=== PATIENT | female | born 1970 | race African-American/Black ===

== ENCOUNTER 2021-01-24 10:21 | Inpatient (IN) | payer BC, MEDICARE ==
[~2021-01-24 10:21] MED LIST: Iopamidol-370 76% 500 ML 1 ML ONE
[2021-01-24] MEDS ORDERED: Ondansetron PF 4 MG/2 ML Vial ONE (10:37)
[2021-01-24] MEDS ORDERED: Metoclopramide HCl 10 MG/2 ML VIAL ONE (10:39)
[2021-01-24] MEDS ORDERED: diphenhydrAMINE 50 MG/ML VIAL ONE (10:39)
[2021-01-24 10:55] LABS: #Eosinphils 0.1 thou/uL (0.0-0.7); #Lymphocytes 4.8 thou/uL (1.20-3.40); #Neutrophils 6.7 thou/uL (1.40-6.50); %Basophils 0.4 % (0.0-1.0); %Eosinophils 1.1 % (0.0-10.0); %Lymphocytes 37.8 % (21.0-51.0); %Monocytes 7.8 % (0.0-10.0); %Neutrophils 52.9 % (42.0-75.0); Hemoglobin 11.5 g/dL (12.0-16.0); Mean Corpuscular HGB CONC 31.9 g/dL (32.0-36.0); Mean Corpuscular Hemoglobin 26.8 pg (27.0-31.0); Mean Corpuscular Volume 84.1 fL (78.0-98.0); Platelet Count 301 thou/uL (130-400); RBC Distribution Width 13.5 % (11.5-14.5); Red Blood Cell (RBC) Count 4.28 mill/uL (4.20-5.40); White Blood Cell (WBC) Count 12.6 thou/uL (4.8-10.8)
[2021-01-24 11:02] LABS: INR-International Normal Ratio 1.1; Prothrombin Time 14.1 sec (12.0-14.7)
[2021-01-24 11:03] LABS: PTT 28.4 sec (22.9-36.1)
[2021-01-24 11:15] LABS: ALT (SGPT) 20 U/L (8-55); AST (SGOT) 14 U/L (5-34); Albumin 3.6 g/dL (3.5-5.0); Alkaline Phosphatase 117 U/L (40-110); Anion Gap 15 mmol/L (10-20); BUN (Urea Nitrogen) 14 mg/dL (7.0-18.7); Bilirubin, Total 0.3 mg/dL (0.2-1.2); Calc. Creatinine Clearance 0 mL/min (70-130); Calcium 8.7 mg/dL (7.8-10.44); Carbon Dioxide 23 mmol/L (22-29); Chloride 99 mmol/L (98-107); Globulin 3.5 g/dL (2.4-3.5); Glucose 145 mg/dL (70-105); Potassium 3.5 mmol/L (3.5-5.1); Protein, Total 7.1 g/dL (6.0-8.3); Sodium 133 mmol/L (136-145)
[2021-01-24] MEDS ORDERED: Acetaminophen 650 MG Suppository PR PRN (13:07)
[2021-01-24] MEDS ORDERED: Docusate 100 MG CAP PO PRN (13:07)
[2021-01-24] MEDS ORDERED: Labetalol HCl 100 MG/20 ML VIAL SLOW IVP PRN (13:07)
[2021-01-24] MEDS ORDERED: Communication Order-Pharmacy FS SCH (13:07)
[2021-01-24] MEDS ORDERED: hydrALAZINE 20 MG/ML VIAL SLOW IVP PRN (13:07)
[2021-01-24] MEDS ORDERED: Acetaminophen 325 MG TAB PO PRN (13:07)
[2021-01-24] MEDS ORDERED: niCARdipine 25 MG in Sodium Chloride 0.9% 250 ML 250 ML IVPB PRN (13:07)
[2021-01-24] MEDS ORDERED: Morphine 2 MG/ML VIAL SLOW IVP PRN (13:31)
[2021-01-24 13:41] LABS: SARS-CoV-2 NAA Rapid Test Not Detected (NotDetected)
[2021-01-24] MEDS ORDERED: Sodium Chloride 0.9% 1,000 ML IV SCH (14:00)
[2021-01-24 15:16] VITALS: BMI 38.7
[2021-01-24] MEDS: Atorvastatin Calcium 40 MG TAB PO SCH (20:09)
[2021-01-25] MEDS ORDERED: Lorazepam 2 MG/ML VIAL SLOW IVP PRN ×2 (10:01→10:15)
[2021-01-25 15:06] LABS: #Basophils 0.1 thou/uL (0.0-0.2); #Eosinphils 0.1 thou/uL (0.0-0.7); #Lymphocytes 2.9 thou/uL (1.20-3.40); #Monocytes 0.8 thou/uL (0.11-0.59); %Basophils 0.7 % (0.0-1.0); %Eosinophils 1.7 % (0.0-10.0); %Monocytes 9.5 % (0.0-10.0); %Neutrophils 51.1 % (42.0-75.0); Hemoglobin 11.6 g/dL (12.0-16.0); Mean Corpuscular HGB CONC 32.8 g/dL (32.0-36.0); Mean Corpuscular Hemoglobin 27.9 pg (27.0-31.0); Mean Corpuscular Volume 84.8 fL (78.0-98.0); Mean Platelet Volume 7.1 fL (7.4-10.4); Platelet Count 284 thou/uL (130-400); RBC Distribution Width 13.5 % (11.5-14.5); Red Blood Cell (RBC) Count 4.18 mill/uL (4.20-5.40); White Blood Cell (WBC) Count 7.9 thou/uL (4.8-10.8)
[2021-01-25 15:14] LABS: Hemoglobin A1c 6.3 % (4.0-6.0)
[2021-01-25 15:25] LABS: ALT (SGPT) 19 U/L (8-55); AST (SGOT) 19 U/L (5-34); Albumin 3.8 g/dL (3.5-5.0); Alkaline Phosphatase 124 U/L (40-110); Anion Gap 13 mmol/L (10-20); BUN (Urea Nitrogen) 12 mg/dL (7.0-18.7); Bilirubin, Total 0.5 mg/dL (0.2-1.2); Calc. Creatinine Clearance 123 mL/min (70-130); Calcium 8.6 mg/dL (7.8-10.44); Carbon Dioxide 26 mmol/L (22-29); Chloride 104 mmol/L (98-107); Globulin 3.4 g/dL (2.4-3.5); Glucose 103 mg/dL (70-105); Potassium 3.2 mmol/L (3.5-5.1); Protein, Total 7.2 g/dL (6.0-8.3); Sodium 140 mmol/L (136-145)
[2021-01-25] MEDS: Atorvastatin Calcium 40 MG TAB PO SCH (21:05)
[2021-01-26] MEDS ORDERED: Lorazepam 0.5 MG TAB PO PRN (10:02)
[2021-01-26 14:46] LABS: Cardiac Risk 3.7 (Less than 4.5)
[2021-01-26] MEDS ORDERED: Atorvastatin Calcium 40 MG TAB PO SCH (21:00)
[2021-01-26] MEDS ORDERED: Enoxaparin Sodium 40 MG/0.4 ML SYRINGE SC SCH (21:00)
[2021-01-26] MEDS: Atorvastatin Calcium 40 MG TAB PO SCH (21:03)
[2021-01-27] MEDS ORDERED: Levothyroxine Sodium 50 MCG TAB PO SCH (06:00)
[2021-01-27] MEDS ORDERED: Aspirin 81 mg Enteric Coated Tablet PO SCH (09:00)
[2021-01-27] MEDS ORDERED: Allopurinol 300 MG TAB PO SCH (09:00)
[2021-01-27] MEDS ORDERED: Hydrochlorothiazide 25 MG TAB PO SCH (09:00)
[2021-01-27 12:40] VITALS: TEMP 98.1
[2021-01-27 15:43] VITALS: BP 139/77
== END 2021-01-27 15:45 | disposition home or self-care (01) | DRG 62 ==
LOC: EDBD 10:21 → ERS 10:21 → CCU 12:34 → 2SW 01-26 16:11
PROVIDERS: ADMIT Internal Medicine; ATTEND Internal Medicine
DX: I63.9 Cerebral infarction, unspecified (principal); G81.94 Hemiplegia, unspecified affecting left nondominant side; Z68.41 Body mass index [BMI] 40.0-44.9, adult; E03.9 Hypothyroidism, unspecified; J45.909 Unspecified asthma, uncomplicated; I10 Essential (primary) hypertension; F41.9 Anxiety disorder, unspecified; E78.5 Hyperlipidemia, unspecified; D72.829 Elevated white blood cell count, unspecified; R29.810 Facial weakness; R19.7 Diarrhea, unspecified; E66.9 Obesity, unspecified; G40.909 Epilepsy, unspecified, not intractable, without status epilepticus; R47.01 Aphasia; E78.00 Pure hypercholesterolemia, unspecified; M10.9 Gout, unspecified; Z20.822 Contact with and (suspected) exposure to COVID-19; Z90.710 Acquired absence of both cervix and uterus; Z90.721 Acquired absence of ovaries, unilateral; Z98.890 Other specified postprocedural states; Z88.6 Allergy status to analgesic agent; Z79.899 Other long term (current) drug therapy; Z79.890 Hormone replacement therapy; Z88.8 Allergy status to other drugs, medicaments and biological substances; Z79.82 Long term (current) use of aspirin; Z92.82 Status post administration of tPA (rtPA) in a different facility within the last 24 hours prior to admission to current facility; R29.716 NIHSS score 16; Z86.16 Personal history of COVID-19
CPT/HCPCS: 0240U; 36415; 36416; 70450; 70496; 70498; 70551; 71045; 71275; 74174; 80053; 80061; 83036; 84484; 85025; 85610; 85730; 93005; 93306; 95712; 95819; 95957; 96365; 96375; 96376; 99292; J1200; J1650; J2060; J2405; J2765; Q9967

== ENCOUNTER 2021-12-22 08:24 | Observation (INO) | payer MEDICARE, BC ==
[2021-12-22 08:49] LABS: #Eosinphils 0.1 thou/uL (0.0-0.7); #Lymphocytes 4.3 thou/uL (1.20-3.40); #Monocytes 0.8 thou/uL (0.11-0.59); #Neutrophils 3.7 thou/uL (1.40-6.50); %Basophils 0.1 % (0.0-1.0); %Eosinophils 1.5 % (0.0-10.0); %Lymphocytes 47.6 % (21.0-51.0); %Monocytes 9.2 % (0.0-10.0); %Neutrophils 41.6 % (42.0-75.0); Hemoglobin 12.4 g/dL (12.0-16.0); Mean Corpuscular HGB CONC 31.5 g/dL (32.0-36.0); Mean Corpuscular Hemoglobin 27.5 pg (27.0-31.0); Mean Corpuscular Volume 87.1 fL (78.0-98.0); Mean Platelet Volume 7.6 fL (7.4-10.4); Platelet Count 305 thou/uL (130-400); RBC Distribution Width 13.8 % (11.5-14.5)
[2021-12-22 09:27] LABS: PTT 31.6 sec (22.9-36.1); Prothrombin Time 13.6 sec (12.0-14.7)
[2021-12-22 09:35] LABS: ALT (SGPT) 26 U/L (8-55); AST (SGOT) 19 U/L (5-34); Albumin 3.7 g/dL (3.5-5.0); Alkaline Phosphatase 127 U/L (40-110); Anion Gap 14 mmol/L (10-20); BUN (Urea Nitrogen) 13 mg/dL (7.0-18.7); Bilirubin, Total 0.3 mg/dL (0.2-1.2); Calc. Creatinine Clearance 0 mL/min (70-130); Calcium 9.4 mg/dL (7.8-10.44); Carbon Dioxide 25 mmol/L (22-29); Chloride 100 mmol/L (98-107); Globulin 3.6 g/dL (2.4-3.5); Glucose 122 mg/dL (70-105); Potassium 3.6 mmol/L (3.5-5.1); Protein, Total 7.3 g/dL (6.0-8.3); Sodium 135 mmol/L (136-145)
[2021-12-22] MEDS ORDERED: Iopamidol-370 76% 500 ML 1 ML ONE (11:07)
[2021-12-22] MEDS ORDERED: Acetaminophen 500 MG TAB ONE (12:21)
[2021-12-22] MEDS ORDERED: Acetaminophen 325 MG TAB PO PRN (13:43)
[2021-12-22] MEDS ORDERED: hydrALAZINE 20 MG/ML VIAL SLOW IVP PRN (13:43)
[2021-12-22] MEDS ORDERED: Lorazepam 2 MG/ML VIAL SLOW IVP PRN (13:46)
[2021-12-22] MEDS ORDERED: Albuterol Sulfate 2.5 mg/3 ml Neb NEB PRN (13:56)
[2021-12-22] MEDS ORDERED: Aspirin 81 mg Enteric Coated Tablet PO SCH ×2 (14:15→21:00)
[2021-12-22] MEDS ORDERED: Aspirin Chewable 81 MG TAB ONE (15:18)
[2021-12-22 16:05] LABS: SARS-CoV-2 NAA Rapid Test Not Detected (NotDetected)
[2021-12-22 17:26] VITALS: BMI 39.6
[2021-12-22] MEDS ORDERED: Atorvastatin Calcium 40 MG TAB PO SCH (21:00)
[2021-12-23 05:37] LABS: Anion Gap 11 mmol/L (10-20); BUN (Urea Nitrogen) 14 mg/dL (7.0-18.7); Calc. Creatinine Clearance 112 mL/min (70-130); Calcium 9.5 mg/dL (7.8-10.44); Carbon Dioxide 28 mmol/L (22-29); Cardiac Risk 3.1 (Less than 4.5); Chloride 101 mmol/L (98-107); Cholesterol 106 mg/dl (< 200 Desired); Glucose 126 mg/dL (70-105); HDL Cholesterol 34 mg/dL (>60 Neg Risk); LDL Cholesterol, Calculated 60 mg/dL; Potassium 3.6 mmol/L (3.5-5.1); Sodium 136 mmol/L (136-145); Triglycerides 60 mg/dL (Less than 150)
[2021-12-23] MEDS ORDERED: Lorazepam 1 MG TAB PO SCH (09:30)
[2021-12-23 15:52] VITALS: BP 134/71; TEMP 98.2
[2021-12-23] MEDS ORDERED: Aspirin 81 mg Enteric Coated Tablet PO SCH (21:00)
== END 2021-12-23 19:05 | disposition home or self-care (01) ==
LOC: ERS 08:24 → ERHOLD 12:13 → NEURO 16:56
PROVIDERS: ADMIT Internal Medicine; ATTEND Internal Medicine
DX: G45.9 Transient cerebral ischemic attack, unspecified (principal); I11.9 Hypertensive heart disease without heart failure; E03.9 Hypothyroidism, unspecified; E78.5 Hyperlipidemia, unspecified; G40.909 Epilepsy, unspecified, not intractable, without status epilepticus; I69.354 Hemiplegia and hemiparesis following cerebral infarction affecting left non-dominant side; K21.9 Gastro-esophageal reflux disease without esophagitis; E78.00 Pure hypercholesterolemia, unspecified; M10.9 Gout, unspecified; E66.9 Obesity, unspecified; Z68.39 Body mass index [BMI] 39.0-39.9, adult; Z79.82 Long term (current) use of aspirin; Z79.84 Long term (current) use of oral hypoglycemic drugs; Z79.890 Hormone replacement therapy; Z79.899 Other long term (current) drug therapy; Z88.5 Allergy status to narcotic agent; Z88.6 Allergy status to analgesic agent; Z88.8 Allergy status to other drugs, medicaments and biological substances; Z20.822 Contact with and (suspected) exposure to COVID-19
CPT/HCPCS: 70450; 70496; 70498; 70551; 71045; 80048; 80061; 83036; 84484; 85610; 85730; 93005; 93306; 94760; 97139; 99285; G0378 ×3; U0002; 36415; 80053; 84443; 85025; Q9967

== ENCOUNTER 2022-11-30 14:38 | Emergency (ER) | payer BC ==
[2022-11-30 15:18] LABS: #Eosinphils 0.2 thou/uL (0.0-0.7); #Lymphocytes 3.5 thou/uL (1.20-3.40); #Monocytes 0.9 thou/uL (0.11-0.59); #Neutrophils 3.8 thou/uL (1.40-6.50); %Basophils 0.3 % (0.0-1.0); %Eosinophils 2.1 % (0.0-10.0); %Lymphocytes 41.5 % (21.0-51.0); %Monocytes 10.5 % (0.0-10.0); %Neutrophils 45.5 % (42.0-75.0); Hemoglobin 12.7 g/dL (12.0-16.0); Mean Corpuscular HGB CONC 32.8 g/dL (32.0-36.0); Mean Corpuscular Hemoglobin 27.9 pg (27.0-31.0); Mean Platelet Volume 7.2 fL (7.4-10.4); Platelet Count 317 10x3/uL (130-400); RBC Distribution Width 13.7 % (11.5-14.5); Red Blood Cell (RBC) Count 4.53 mill/uL (4.20-5.40); White Blood Cell (WBC) Count 8.4 10x3/uL (4.8-10.8)
[2022-11-30 15:27] LABS: BHCG - Serum Negative (NEGATIVE); Pregs Control Background? CLEAR/WHITE (CLR/WHITE); Pregs Control Bar Appear? YES (CONTROL BAR)
[2022-11-30 15:45] LABS: ALT (SGPT) 26 U/L (8-55); AST (SGOT) 24 U/L (5-34); Alkaline Phosphatase 152 U/L (40-110); Anion Gap 10 mmol/L (10-20); BUN (Urea Nitrogen) 14 mg/dL (7.0-18.7); Bilirubin, Total 0.3 mg/dL (0.2-1.2); Calc. Creatinine Clearance 0 mL/min (70-130); Calcium 9.9 mg/dL (7.8-10.44); Carbon Dioxide 29 mmol/L (22-29); Chloride 102 mmol/L (98-107); Estimated GFR 71; Globulin 3.9 g/dL (2.4-3.5); Glucose 118 mg/dL (70-105); Lipase 30 U/L (8-78); Potassium 3.8 mmol/L (3.5-5.1); Protein, Total 7.9 g/dL (6.0-8.3); Sodium 137 mmol/L (136-145)
== END 2022-11-30 19:28 | disposition home or self-care (01) ==
LOC: ERS 14:38
DX: R07.89 Other chest pain (principal); E11.9 Type 2 diabetes mellitus without complications; K21.9 Gastro-esophageal reflux disease without esophagitis; E03.9 Hypothyroidism, unspecified; E78.00 Pure hypercholesterolemia, unspecified; I10 Essential (primary) hypertension; Z79.82 Long term (current) use of aspirin; Z79.4 Long term (current) use of insulin
CPT/HCPCS: 36415; 71045; 80053; 83690; 84484; 84703; 85025; 93005; 94760

== ENCOUNTER 2024-08-11 20:43 | Observation (INO) | payer BC ==
[~2024-08-11 20:43] MED LIST changes: -Iopamidol-370 76% 500 ML 1 ML ONE; +Iopamidol-370 76% 500 ML MDV (1 ML CHARGE) ONE
[2024-08-11 21:11] LABS: #Basophils 0.03 10x3/uL (0.0-0.2); %Basophils 0.3 % (0.0-1.0); %Eosinophils 2.5 % (0.0-10.0); %Lymphocytes 42.8 % (21.0-51.0); %Monocytes 8.3 % (0.0-10.0); %Neutrophils 45.9 % (42.0-75.0); Hematocrit 37.1 % (36.0-47.0); Hemoglobin 11.6 g/dL (12.0-16.0); Mean Corpuscular HGB CONC 31.3 g/dL (32.0-36.0); Mean Corpuscular Hemoglobin 26.3 pg (27.0-31.0); Mean Corpuscular Volume 84.1 fL (78.0-98.0); Mean Platelet Volume 9.4 fL (7.4-10.4); Platelet Count 315 10x3/uL (130-400); RBC Distribution Width 15.3 % (11.5-14.5); Red Blood Cell (RBC) Count 4.41 mill/uL (4.20-5.40)
[2024-08-11 21:24] LABS: PTT 29.6 sec (22.9-36.1); Prothrombin Time 13.7 sec (12.0-14.7)
[2024-08-11 21:29] LABS: Acetaminophen Less than 10 mcg/mL (Less than 10); Alcohol Less than 10.0 mg/dL (Less than 10); Magnesium 1.9 mg/dL (1.6-2.6); Salicylate Less than 8.0 mg/dL (Less than 8.0)
[2024-08-11 21:30] LABS: ALT (SGPT) 37 U/L (8-55); AST (SGOT) 25 U/L (5-34); Albumin 3.7 g/dL (3.5-5.0); Alkaline Phosphatase 140 U/L (40-110); Anion Gap 15 mmol/L (10-20); BUN (Urea Nitrogen) 12 mg/dL (9.8-20.1); Bilirubin, Total 0.3 mg/dL (0.2-1.2); Calc. Creatinine Clearance 0 mL/min (70-130); Calcium 9.6 mg/dL (7.8-10.44); Carbon Dioxide 26 mmol/L (22-29); Chloride 104 mmol/L (98-107); Estimated GFR 55; Glucose 106 mg/dL (70-105); Potassium 3.8 mmol/L (3.5-5.1); Protein, Total 7.7 g/dL (6.0-8.3); Sodium 141 mmol/L (136-145)
[2024-08-11 21:36] LABS: Troponin I 0.014 ng/mL (< 0.028)
[2024-08-12] MEDS ORDERED: Ondansetron ODT 4 MG TAB PO PRN (00:41)
[2024-08-12] MEDS ORDERED: Ondansetron PF 4 MG/2 ML Vial IVP PRN ×2 (00:41→03:20)
[2024-08-12] MEDS ORDERED: Acetaminophen 650 MG Suppository PR PRN (00:41)
[2024-08-12] MEDS ORDERED: Albuterol 200 PUFF (6.7GM INHALER) INH PRN (00:44)
[2024-08-12] MEDS ORDERED: Dextrose 5% in Water 1,000 ML IV PRN (00:44)
[2024-08-12] MEDS ORDERED: Glucagon 1 MG/ML KIT IM PRN (00:44)
[2024-08-12] MEDS ORDERED: Insulin Lispro 100 UNIT/ML 10 ML VIAL SC PRN (00:44)
[2024-08-12] MEDS ORDERED: Dextrose 50% Abboject 50 ML SYRINGE SLOW IVP PRN (00:44)
[2024-08-12 04:43] VITALS: BMI 38.1
[2024-08-12] MEDS: Levothyroxine Sodium 50 MCG TAB PO SCH (05:51)
[2024-08-12] MEDS: Atorvastatin Calcium 40 MG TAB PO SCH (05:52)
[2024-08-12 06:24] LABS: #Basophils Less than 0.03 10x3/uL (0.0-0.2); %Basophils 0.2 % (0.0-1.0); %Eosinophils 3.3 % (0.0-10.0); %Lymphocytes 26.3 % (21.0-51.0); %Monocytes 8.9 % (0.0-10.0); Hematocrit 36.3 % (36.0-47.0); Hemoglobin 11.3 g/dL (12.0-16.0); Mean Corpuscular HGB CONC 31.1 g/dL (32.0-36.0); Mean Corpuscular Volume 83.6 fL (78.0-98.0); Mean Platelet Volume 9.3 fL (7.4-10.4); Platelet Count 293 10x3/uL (130-400); RBC Distribution Width 15.3 % (11.5-14.5); Red Blood Cell (RBC) Count 4.34 mill/uL (4.20-5.40)
[2024-08-12 06:34] LABS: Hemoglobin A1c 6.3 % (4.0-6.0)
[2024-08-12 06:44] LABS: Anion Gap 14 mmol/L (10-20); BUN (Urea Nitrogen) 12 mg/dL (9.8-20.1); Calc. Creatinine Clearance 119 mL/min (70-130); Calcium 9.2 mg/dL (7.8-10.44); Carbon Dioxide 25 mmol/L (22-29); Cardiac Risk 3.5 (Less than 4.5); Chloride 105 mmol/L (98-107); Cholesterol 140 mg/dl (< 200 Desired); Estimated GFR 82; Glucose 110 mg/dL (70-105); HDL Cholesterol 40 mg/dL (>60 Neg Risk); LDL Cholesterol, Calculated 91 mg/dL; Potassium 3.5 mmol/L (3.5-5.1); Sodium 140 mmol/L (136-145); Triglycerides 47 mg/dL (Less than 150)
[2024-08-12] MEDS: Aspirin 81 mg Enteric Coated Tablet PO SCH (08:43)
[2024-08-12] MEDS: Acetaminophen 325 MG TAB PO PRN (08:43)
[2024-08-12] MEDS: Enoxaparin 40 MG (0.4 mL) SYRINGE SC SCH (08:44)
[2024-08-12] MEDS: Pantoprazole DR 40 MG TAB PO SCH (08:44)
[2024-08-12] MEDS: FLU (Fluarix Triv) TS24-25(6MOS UP)/PF 45 MCG/0.5 ML Syringe IM ONE (10:49)
[2024-08-12 16:16] VITALS: TEMP 98.3
[2024-08-12 16:30] VITALS: BP 138/76
[2024-08-12] MEDS ORDERED: Atorvastatin Calcium 40 MG TAB PO SCH (21:00)
== END 2024-08-12 18:34 | disposition home or self-care (01) ==
LOC: ERS 20:43 → ERHOLD 23:25 → 2SE 08-12 04:26
PROVIDERS: ADMIT Family Medicine; ATTEND Internal Medicine
PROC: B246ZZZ Ultrasonography of Right and Left Heart (ICD-10-PCS; principal; 2024-08-12)
DX: G45.9 Transient cerebral ischemic attack, unspecified (principal); E11.9 Type 2 diabetes mellitus without complications; K21.9 Gastro-esophageal reflux disease without esophagitis; E03.9 Hypothyroidism, unspecified; J45.909 Unspecified asthma, uncomplicated; M10.9 Gout, unspecified; E78.00 Pure hypercholesterolemia, unspecified; Z88.5 Allergy status to narcotic agent; Z88.6 Allergy status to analgesic agent; Z88.7 Allergy status to serum and vaccine; Z98.890 Other specified postprocedural states; Z79.890 Hormone replacement therapy; Z79.82 Long term (current) use of aspirin; Z79.899 Other long term (current) drug therapy
CPT/HCPCS: 36415; 36416; 70450; 70496; 70498; 70551; 71045; 80048; 80053; 80061; 80307; 83036; 83735; 84443; 84484; 85025; 85610; 85730; 93005; 93306; 96372; G0378; J1650; Q9967